=== PATIENT | female | born 1950 | race Caucasian/White ===

== ENCOUNTER 2018-07-08 12:52 | Outpatient (CLI) | payer MEDICARE | END 2018-07-08 12:53 | disposition short-term general hospital (02) | LOC: EMS 12:52 | PROVIDERS: ATTEND Surgery | DX: S21.002A Unspecified open wound of left breast, initial encounter (principal); X58.XXXA Exposure to other specified factors, initial encounter | CPT/HCPCS: A0425; A0427 ==